=== PATIENT | female | born 1985 | race Caucasian/White ===

== ENCOUNTER 2019-03-29 10:09 | Day surgery (SDC) | payer BC, OTHER ==
[~2019-03-29] VITALS: Ht 162.6 cm; Wt 61.0 kg
[~2019-03-29 10:09] MED LIST: ATOR10TA PO; CIPR250T27 PO; FERR325T18 PO
[2019-03-29 10:36] VITALS: BP 97/63
[2019-03-29] MEDS ORDERED: BIRTH CONTROL PO (10:36)
[2019-03-29] MEDS ORDERED: LIDOCAINE-MPF 1%, 5ML ONE (11:09)
[2019-03-29] MEDS ORDERED: LIDOCAINE 1%, 20ML ONE (11:09)
== END 2019-03-29 12:30 | disposition home or self-care (01) ==
LOC: CACL 10:09
PROVIDERS: ATTEND Internal Medicine Cardiovascular Disease
DX: Z45.09 Encounter for adjustment and management of other cardiac device (principal); D22.5 Melanocytic nevi of trunk; Z91.040 Latex allergy status; Z91.018 Allergy to other foods
CPT/HCPCS: 11200; 33286; 88305; C1764